=== PATIENT | female | born 1995 | race Caucasian/White ===

== ENCOUNTER 2017-01-02 15:28 | Emergency (ER) | payer OTHER ==
[2017-01-02 15:45] VITALS: PULSE 91; RESP 16; TEMP 97.9
--- NOTE | 2017-01-02 16:09 | EDPHY ---
General - History Smoking Status: Current some day smoker Narrative: CHIEF COMPLAINT: Right knee pain, snowboarding injury HISTORY OF PRESENT ILLNESS: Patient was snowboarding yesterday [place] when she fell, injuring her knees. She says she struck her right knee on a tree. She had a sudden onset of pain the right knee. It is more medial and central. Pain is severe when trying to flex the knee. It is mild to moderate at rest. Able to straighten without any pain. Too painful for her to flex the knee. Some paresthesias to the medial aspect of the knee. There is no pain, paresthesia or anesthesia distal to the knee. There is no radiating pain. There is no pain ipsilateral hip, foot, heel or ankle. No head or neck injury. No chest or back injury. No abdominal injury. No injury to the arms the left leg. No other associated complaints or modifying factors. PRIOR ORTHO INJURIES: None ESTABLISHED ORTHOPEDIST: None REVIEW OF SYSTEMS: Ten systems reviewed and are negative unless otherwise noted in the HPI EXAMINATION General Appearance: Alert, no distress Cardiovascular: Pulses normal throughout. Symmetric DP and PT pulses at 2+. Brisk cap refill Neurological: A&O, sensory symmetric, strength symmetric but painful in the right knee. Skin: Warm and dry, no rash. Small areas of contusion to both anterior knees. Extremities: Moderate tenderness to palpation of the right knee about the joint , more medial than lateral. No crepitus. No deformity. No laxity. No instability. Range of motion is difficult to test secondary to pain. She does have extension and flexion retained. No palpable fluctuance. No lacerations or abrasions. Neurovascular intact distal to the right knee injury. Range of motion of the left knee is fully intact range of motion of the right ankle and foot is fully intact. Psychiatric: Mood and affect normal DIFFERENTIAL DIAGNOSES: Including but not limited to patellar fracture, fracture, dislocation, sprain, strain MDM: 4:05 p.m. Blunt trauma to the right knee while snowboarding yesterday. She has moderate tenderness of the medial aspect of the knee. She is neuro intact distal to the area of injury. X-ray is pending at this time. 4:50 p.m. X-ray reveals no acute fracture dislocation. I have re-evaluated the patient. She remains neurovascular intact but has difficulty bending the knee due to pain. There is no foot drop. She has excellent sinus perfusion without any erythema or signs of DVT. Will place her in an Roberto wrap as she remains ambulatory. Recommend Aleve or ibuprofen for swelling. Recommend heel slides to decreased stiffness in the knee. She is to follow up with Orthopedics for definitive care and likely will need an MRI next week. She is to return to ER for worsening pain, any redness of the lower extremity, any sensory changes below the knee. She is comfortable this plan and discharged home in stable condition. ED Precautions: Worsening pain. Erythema, edema, cyanosis, pallor, paresthesia or anesthesia. SUPERVISION: This patient was independently evaluated without direct examination by the attending physician. Case was discussed with attending physician. (Cody Aleman) - Diagnostics Imaging Results: Imaging Impressions Knee X-Ray 01/02/17 15:47 Impression: Normal exam. If there is further clinical concern regarding the patient's knee pain, correlative MR imaging could be scheduled. Discussion: The patient was evaluated and managed by the Physician Wind Field Service Manager/ Nurse Practitioner. My co-signature indicates that I have reviewed this chart and I agree with the findings and plan of care as documented. I am the secondary supervising physician. (Elaina Perez) - Objective Vital Signs: Initial Vital Signs Temperature (C) 36.6 C 01/02/17 15:39 Heart Rate 91 01/02/17 15:39 Respiratory Rate 16 01/02/17 15:39 Blood Pressure 109/63 01/02/17 15:39 O2 Sat (%) 97 01/02/17 15:39 O2 Delivery Mode Room Air Allergies/Adverse Reactions: No Known Allergies Allergy (Unverified 01/02/17 15:45) Home Medications: Medication Instructions Recorded Advair 250/50 (*) 01/02/17 Albuterol Sulfate 01/02/17 Hydrocodone/APAP 5/325 [[place] 1 - 2 tab PO Q4H PRN #10 tab 01/02/17 5/325 (*)] Departure - Departure Disposition: Home, Routine, Self-Care Clinical Impression: Snowboard accident Qualifiers: Encounter type: initial encounter Qualified Code(s): V00.318A - Other snowboard accident, initial encounter Right knee injury Qualifiers: Encounter type: initial encounter Qualified Code(s): S89.91XA - Unspecified injury of right lower leg, initial encounter Contusion of knee, right Qualifiers: Encounter type: initial encounter Qualified Code(s): S80.01XA - Contusion of right knee, initial encounter Condition: Good Instructions: Knee Sprain (ED), Knee Pain (ED) Additional Instructions: Weightbearing as tolerated. Return to ER for worsening pain, redness, sensory changes, physical difficulty bending the knee. Referrals: Edgar Lemon MD [Medical Doctor] - As per Instructions Stand Alone Forms: School Excuse Prescriptions: Hydrocodone/APAP 5/325 [[place] 5/325 (*)] 1 - 2 tab PO Q4H PRN #10 tab PRN Reason: Pain, Moderate
[2017-01-02 17:11] VITALS: BP 113/72; O2SAT 98
== END 2017-01-02 17:16 | disposition home or self-care (01) ==
DX: S80.01XA Contusion of right knee, initial encounter (principal); F17.200 Nicotine dependence, unspecified, uncomplicated; V00.311A Fall from snowboard, initial encounter; Y99.8 Other external cause status; Y93.23 Activity, snow (alpine) (downhill) skiing, snowboarding, sledding, tobogganing and snow tubing